=== PATIENT | male | born 1995 | race Caucasian/White ===

== ENCOUNTER 2021-04-19 01:26 | Emergency (ER) | payer MEDICAID ==
[~2021-04-19] VITALS: Ht 167.6 cm; Wt 68.0 kg
[~2021-04-19 01:26] MED LIST: ARIP15TA3 PO; BUPR200T2 PO; QUET25TA PO; TRAZ-182 PO
--- NOTE | 2021-04-19 01:55 | NUR ---
PT BIB [employer] FOR BIZARRE BEHAVIOR, RUNNING IN & OUT OF TRAFFIC. PT ALERT AND ORIENTED X3. AMBULATORY WITH NON LABORED BREATHING.
[2021-04-19 02:21] LABS: BILIRUBIN,URINE SMALL (NEGATIVE); COLOR,URINE YELLOW (YELLOW); LEUKOCYTE ESTERASE ,URINE Negative (NEGATIVE); NITRITE, URINE Negative (NEGATIVE); PROTEIN,URINE Trace mg/dl (NEGATIVE); UGLUCOSE Negative (NEGATIVE)
[2021-04-19 02:28] LABS: CALCIUM, SERUM 8.3 mg/dL (8.5-10.1); CARBON DIOXIDE 27 mmol/L (21-32); CHLORIDE 104 mmol/L (98-107); CREATININE 1.1 mg/dL (0.6-1.3); GLUCOSE 112 mg/dL (74-106); POTASSIUM 3.6 mmol/L (3.5-5.1); SODIUM SERUM 136 mmol/L (136-145); UREA NITROGEN, BLOOD 23 mg/dL (7-18)
[2021-04-19 02:34] LABS: ALANINE AMINOTRANSFERASE 36 U/L (12-78); ALBUMIN 3.1 g/dL (3.4-5.0); ALCOHOL, BLOOD < 3 mg/dL (0-0); ALKALINE PHOSPHATASE 88 U/L (46-116); ASPARTATE AMINOTRANSFERASE 33 U/L (15-37); BILIRUBIN,DIRECT 0.1 mg/dL (0.0-0.2); BILIRUBIN,TOTAL 0.4 mg/dL (0.2-1.0); TOTAL PROTEIN, SERUM 6.6 g/dL (6.4-8.2)
[2021-04-19 02:35] LABS: ACETAMINOPHEN 0 ug/ml (10-30)
[2021-04-19 02:40] LABS: BASOPHILS # (AUTO) 0.1 K/uL (0.0-0.2); BASOPHILS % (AUTO) 0.9 % (0.0-2.0); EOSINOPHILS % (AUTO) 1.7 % (0.0-6.0); HEMATOCRIT 36 % (39-51); HEMOGLOBIN 12.4 g/dL (13.5-17.5); LYMPHOCYTES % (AUTO) 22.7 % (20.0-44.0); MEAN CORPUSCULAR HGB CONC 34 g/dl (31.0-36.0); MEAN CORPUSCULAR VOLUME 85 fL (80-96); MONOCYTES # (AUTO) 0.6 K/uL (0.1-1.30); MONOCYTES % (AUTO) 7.2 % (2.0-12.0); NEUTROPHILS # (AUTO) 5.9 K/uL (1.8-8.9); NEUTROPHILS % (AUTO) 67.5 % (43.0-81.0); PLATELET COUNT (AUTO) 357 K/uL (150-450); WHITE BLOOD COUNT (AUTO) 8.8 K/uL (4.3-11.0)
[2021-04-19] MEDS ORDERED: TDAP [DIPH/PERTUSSIS/TET] 0.5 ML VIAL IM ONE ×2 (03:00→03:10)
--- NOTE | 2021-04-19 03:32 | NUR ---
GEORGINA DONE AND SENT TO LAB
--- NOTE | 2021-04-19 04:33 | NUR ---
RESTING COMFORTABLY. VSS.
[2021-04-19 04:34] VITALS: BP 151/89
--- NOTE | 2021-04-19 06:14 | NUR ---
FACESHEET AND CLINICALS FAXED TO [facility].
--- NOTE | 2021-04-19 09:50 | NUR ---
ACCEPTED AT [facility] UNDER DR. WOOTEN. CALL FOR REPORT [phone]
--- NOTE | 2021-04-19 09:57 | NUR ---
[facility] CALLED ETA 75 MINS PER LUIS DANIEL.
--- NOTE | 2021-04-19 10:46 | NUR ---
REPORT GIVEN TO GLENN QUESADA FOR [facility].
--- NOTE | 2021-04-19 11:48 | NUR ---
REPORT GIVEN TO SLITTER AND REWINDER. PATIENT TRANSFERRED TO [facility] INS TABLE CONDITION.
== END 2021-04-19 11:50 ==
LOC: ER 01:38
DX: R45.851 Suicidal ideations (principal); F19.10 Other psychoactive substance abuse, uncomplicated; R94.31 Abnormal electrocardiogram [ECG] [EKG]; Z91.19 Patient's noncompliance with other medical treatment and regimen; Z59.00 Homelessness unspecified; Z86.19 Personal history of other infectious and parasitic diseases; Z79.899 Other long term (current) drug therapy; S91.312A Laceration without foreign body, left foot, initial encounter; S91.311A Laceration without foreign body, right foot, initial encounter; X58.XXXA Exposure to other specified factors, initial encounter; Y92.89 Other specified places as the place of occurrence of the external cause
CPT/HCPCS: 36415; 73630; 80048; 80076; 80143; 80307; 80320; 81003; 83735; 84484; 85025; 87426; 90471; 90715; 93005; 99285; A6403; C9803; G0480